=== PATIENT | female | born 1990 | race Caucasian/White ===

== ENCOUNTER 2022-06-30 19:58 | Emergency (ER) | payer OTHER ==
[2022-06-30] MEDS ORDERED: SILVER SULFADIAZINE 1% TOP CREAM 50 GM JAR TP ONE (20:02)
[2022-06-30] MEDS ORDERED: IBUPROFEN 600 MG TABLET (FP) PO ONE ×2 (20:06→20:08)
[2022-06-30] MEDS ORDERED: DIPHTH,PERTUSS(ACELL),TET 0.5 ML DISP.SYRIN IM ONE ×2 (20:11→20:13)
[2022-06-30] MEDS ORDERED: BACITRACIN 15 GM TUBE TOPICAL OINTMENT TP ONE (20:23)
[2022-06-30 20:27] VITALS: BP 158/99; PULSE 137; RESP 20; TEMP 98.1; BMI 16.1
[2022-06-30] MEDS ORDERED: LORazepam 2 MG TABLET PO ONE (20:35)
[2022-06-30] MEDS ORDERED: ACETAMINOPHEN 160 MG/5 ML *Children Solution PO ONE (20:35)
[2022-06-30] MEDS ORDERED: LORazepam 0.5 MG TABLET ONE (20:39)
[2022-06-30] MEDS ORDERED: ACETAMINOPHEN 650 MG/20.3 ML ORAL SOLUTION (CUPS) ONE (20:39)
== END 2022-06-30 21:38 | disposition home or self-care (01) ==
LOC: FER 19:58
DX: T23.201A Burn of second degree of right hand, unspecified site, initial encounter (principal); T23.231A Burn of second degree of multiple right fingers (nail), not including thumb, initial encounter; X12.XXXA Contact with other hot fluids, initial encounter
CPT/HCPCS: 99283-25; C9803-CS; U0003; U0005